=== PATIENT | female | born 1950 | race Caucasian/White ===

== ENCOUNTER → 2016-02-26 | Outpatient (CLI) | payer OTHER ==
[~2016-02-26] MED LIST: ADVIN25/60 INH; ALBINS/ INH; ALBU0.5N2 NEB; ALBU1AER9 INH; CHOL200010 PO; CRS10 PO; DOXY100C PO; DVN/160 PO; EQUATE ALLERGY PEG; FEXO1TAB PO; FLNIN/ NAE; GLC500 PO; IPRA1AER2 INH; LEVO75TA5 PO; LEVO88TA3 PO; LSX20 PO; MAGN250T8 PO; MULTTAB58 PO; OXYC-57 PO; RANI150T2 PO; SPRIN/30 INH
--- NOTE | 2016-02-26 16:11 | MAMMOGRAPHY REPORT ---
BILATERAL DIGITAL SCREENING MAMMOGRAM WITH CAD: 02/26/2016 CLINICAL HISTORY: Routine screening. Patient has no complaints. TECHNIQUE: Current study was also evaluated with a Computer Aided Detection (CAD) system. Bilatera l CC and MLO views were obtained. COMPARISON: Comparison is made to exams dated: 02/11/2015 mammogram - [facility], 12/24/2008 mammogram - [facility], and 10/23/2007 mammogram. BREAST COMPOSITION: The tissue of both breasts is almost entirely fatty. FINDINGS: No suspicious masses, calcifications, or areas of architectural distortion are noted in e ither breast. There has been no significant interval change compared to prior exams. IMPRESSION: ACR BI-RADS CATEGORY 1: NEGATIVE There is no mammographic evidence of malignancy. A 1 year screening mammogram is recommended. The p atient will receive written notification of the results. Approximately 10% of breast cancers are not detected with mammography. A negative mammographic repor t should not delay biopsy if a clinically suggestive mass is present. Janice Nguyen M.D. ah/:02/26/2016 12:40:57 Knitted Goods Shaper: Arcelia Naranjo, [facility] letter sent: Normal 1/2 BI-RADS Code: ACR BI-RADS Category 1: Negative
== END | disposition home or self-care (01) ==
LOC: C.MAMM 10:04
PROVIDERS: ATTEND Internal Medicine
DX: Z12.31 Encounter for screening mammogram for malignant neoplasm of breast (principal)

== ENCOUNTER 2016-04-21 16:24 | Emergency (ER) | payer OTHER ==
[~2016-04-21] VITALS: Ht 149.9 cm; Wt 105.9 kg
[~2016-04-21 16:24] MED LIST changes: -ADVIN25/60 INH; -ALBINS/ INH; -CHOL200010 PO; -CRS10 PO; -DOXY100C PO; -DVN/160 PO; -FEXO1TAB PO; -FLNIN/ NAE; -GLC500 PO; -IPRA1AER2 INH; -LEVO88TA3 PO; -LSX20 PO; -MAGN250T8 PO; -MULTTAB58 PO; -OXYC-57 PO; -RANI150T2 PO; -SPRIN/30 INH
[2016-04-21 16:27] VITALS: TEMP 36.8; Ht 149.9 cm; Wt 105.9 kg
[2016-04-21] MEDS ORDERED: FEXO1TAB PO (16:42)
[2016-04-21] MEDS ORDERED: IPRA1AER2 INH (16:42)
[2016-04-21] MEDS ORDERED: ALBINS/ INH (16:42)
[2016-04-21] MEDS ORDERED: OXYCODONE/ACETAMINOPHEN 5-325 TAB PO ONE (16:45)
--- NOTE | 2016-04-21 17:25 | DIAGNOSTIC IMAGING REPORT ---
LEFT SHOULDER 4 VIEWS CLINICAL HISTORY: Left shoulder pain. FINDINGS: 3 views of left shoulder are obtained. No prior studies are available for comparison at the time of dictation. The skeletal structures are osteopenic. No fracture or dislocation is seen. Mild productive change is noted at the acromioclavicular articulation. The glenohumeral joint appears preserved. The overlying soft tissues are within normal limits. Partially imaged left lung parenchyma appears clear. Atherosclerotic calcification is noted in the partially imaged thoracic aorta. IMPRESSION: No acute bony abnormality is seen in the left shoulder. Electronically signed by: Michael Jimenez M.D. 04/21/2016 5:24 PM Dictated Date/Time: 04/21/2016 5:23 PM
[2016-04-21] MEDS ORDERED: OXYC-57 PO (17:35)
--- NOTE | 2016-04-21 17:38 | EMERGENCY ROOM VISIT NOTE ---
History Report prepared by Cody: Laverne Bruno Under the Supervision of: Dr. Go Esteves D.O. First contact with patient: 16:30 Chief Complaint: SHOULDER PAIN Stated Complaint: LUMP-PAIN IN LEFT SHOULDER/ARM AND BACK PAIN History of Present Illness The patient is a 65 year old female who presents to the Emergency Room with complaints of persistent left shoulder pain which started a couple days ago. The patient currently rates her discomfort as an 8 out of 10. She states that she experiences pain when she tries to move her shoulder and sometimes it feels like her shoulder is locking up. She also reports that there is a lump on her shoulder which has also been present for a couple days. She denies any recent falls. She has a cough, but mentions that she is asthmatic. She also states she is experiencing pain in her lower back and mid back. Patient denies any fever. She took ibuprofen, but experienced no significant relief. The patient is right handed. Source of History: patient Onset: couple days ago Position: shoulder (left) Symptom Intensity: 8/10 Timing: other (persistent) Modifying Factors (Worsening): movement Associated Symptoms: + back pain, + cough, No fevers Review of Systems See HPI for pertinent positives & negatives. A total of 10 systems reviewed and were otherwise negative. Past Medical & Surgical Medical Problems: (1) COPD (chronic obstructive pulmonary disease) (2) Diabetes (3) Hyperlipidemia Nec/Nos (4) Hypothyroidism Nos (5) Pancreatitis, acute (6) Tubal of gallbladder Family History Cancer Diabetes mellitus Heart disease Hypertension Lung disease Social History Smoking Status: Never Smoker Alcohol Use: none Marital Status: Housing Status: lives with family Occupation Status: unemployed Current/Historical Medications Scheduled Cholecalciferol (Vitamin D), 2,000 INTER.UNIT PO HS Fluticasone Prop/Salmeterol (Advair Diskus 250/50 60 Dose), 1 PUFF INH BID Fluticasone Propionate (Fluticasone Propionate), 2 SPRAYS SYLVIA QAM Furosemide (Furosemide), 20 MG PO QAM Levothyroxine Sodium (Levothyroxine Sodium), 1 TAB PO QAM Magnesium Oxide (Mg Supplement (Magnesium), 1 TAB PO QPM Metformin HCl (Metformin HCl), 1,000 MG PO BIDM Multiple Vitamin (Multivitamin), 1 TAB PO QAM Ranitidine HCl (Ranitidine HCl), 150 MG PO BID Rosuvastatin Calcium (Crestor), 10 MG PO HS Tiotropium [place] (Spiriva Handihaler), 1 CAP INH QAM Valsartan (Diovan), 160 MG PO HS Scheduled PRN Albuterol Sulf (Proventil 0.083% 2.5MG/3ML), 2.5 MG INH TID PRN for SOB/Wheezing Fexofenadine Hcl (Eql Aller-Ease), 1 TAB PO DAILY PRN for ALLERGIC REACTION Ipratropium-Albuterol (Combivent Respimat), 1 PUFF INH QID PRN for SOB/Wheezing Oxycodone/Acetaminophen 5MG/325MG (Percocet 5MG/325MG), 1 TAB PO Q6H PRN for Pain Allergies Coded Allergies: Penicillins (Verified Allergy, Severe, HIVES, 02/28/15) Uncoded Allergies: TOMATOES (Allergy, Intermediate, RASH, 02/28/15) ENVIRONMENTAL (Allergy, Unknown, NASAL CONGESTION, 02/28/15) Physical Exam Vital Signs Date Time Temp Pulse Resp B/P Pulse Ox O2 Delivery O2 Flow Rate FiO2 04/21/16 16:27 36.8 101 18 145/69 94 Room Air Physical Exam CONSTITUTIONAL/VITAL SIGNS: Reviewed / noted above. GENERAL: Non-toxic in appearance. INTEGUMENTARY: Warm, dry, and [place]. HEAD: Normocephalic. EYES: without scleral icterus or trauma. ENT/OROPHARYNX: clear and moist. LYMPHADENOPATHY/NECK: Is supple without lymphadenopathy or meningismus. RESPIRATORY: Lungs clear and equal. CARDIOVASCULAR: Regular rate and rhythm. GI/ABDOMEN: Soft and nontender. No organomegaly or pulsatile mass. No rebound or guarding. Normal bowel sounds. EXTREMITIES: Warm and well perfused. BACK: No CVA tenderness. NEUROLOGICAL: Intact without focal deficits. PSYCHIATRIC: normal affect. MUSCULOSKELETAL: Normally developed with good muscle tone. Tender to palpation of musculature of left shoulder. Mild discomfort in left shoulder with range of motion. Strong distal pulses. Motor and sensation normal for left arm. Medical Decision & Procedures ER Provider Diagnostic Interpretation: X ray results and stated below per my interpretation and radiology interpretation. LEFT SHOULDER 4 VIEWS CLINICAL HISTORY: Left shoulder pain. FINDINGS: 3 views of left shoulder are obtained. No prior studies are available for comparison at the time of dictation. The skeletal structures are osteopenic. No fracture or dislocation is seen. Mild productive change is noted at the acromioclavicular articulation. The glenohumeral joint appears preserved. The overlying soft tissues are within normal limits. Partially imaged left lung parenchyma appears clear. Atherosclerotic calcification is noted in the partially imaged thoracic aorta. IMPRESSION: No acute bony abnormality is seen in the left shoulder. Electronically signed by: Michael Jimenez M.D. 04/21/2016 5:24 PM Medications Administered Medications (Trade) Dose Ordered Sig/Arcadio Route Start Time Stop Time Status Last Admin Dose Admin Oxycodone/ Acetaminophen (Percocet 5-325mg Tab) 1 tab NOW ONCE PO 04/21/16 16:45 04/21/16 16:46 DC 04/21/16 16:51 1 TAB ED Course 1634: Previous medical records were reviewed. The patient was evaluated in room B11. A complete history and physical examination was performed. 1645: Oxycodone/Acetaminophen 1 tab PO. 174: I reevaluated the patient. She is resting comfortably. I discussed the results and treatment plan with her. She verbalized complete understanding and agreement. She will be discharged home. Medical Decision Differential considered: arthritis, musculoskeletal strain, contusion, infection . This is a 65-year-old female who presents to the ED with a chief complaint of left shoulder pain. The patient states that her left shoulder began hurting the last few days. She states that she feels like it locks up on occasion. He denies injury. She has no chest pains or shortness of breath. Her pain is worsened with movement. Her exam reveals tenderness to palpation of the left shoulder musculature. She appears to have mild discomfort with passive and active motion of the left shoulder. She is neurovascularly intact distally. There are no rashes. There is no redness. There is a small lump in the left scapular area that is nontender and likely unrelated to the patient's symptoms. The patient is felt to be stable for discharge. She was treated with Percocet by mouth. She'll be discharged on Percocet. An x-ray did not show any acute abnormality. Impression Primary Impression: Left shoulder pain Scribe Attestation The scribe's documentation has been prepared under my direction and personally reviewed by me in its entirety. I confirm that the note above accurately reflects all work, treatment, procedures, and medical decision making performed by me. Departure Information Dispostion Home / Self-Care Prescriptions Oxycodone/Acetaminophen 5MG/325MG (PERCOCET 5MG/325MG) Tab 1 TAB PO Q6H Y for Pain, #12 TAB Prov: Go Esteves D.O. 04/21/16 Referrals Robert Devi M.D. (PCP) Robert Pierce MD Forms HOME CARE DOCUMENTATION FORM, IMPORTANT VISIT INFORMATION Patient Instructions My [facility] Additional Instructions Percocet as prescribed. No driving within 6 hours of use. Do not take additional Tylenol while taking Percocet. Follow-up with orthopedics for further evaluation of your shoulder pain. Dr. Pierce listed above.
[2016-04-21 18:12] VITALS: BP 127/87; PULSE 88; O2SAT 98
[2016-04-21] MEDS ORDERED: GLC500 PO (20:35)
[2016-04-21] MEDS ORDERED: SPRIN/30 INH (20:35)
[2016-04-21] MEDS ORDERED: FLNIN/ NAE (20:35)
[2016-04-21] MEDS ORDERED: CRS10 PO (20:35)
[2016-04-21] MEDS ORDERED: RANI150T2 PO (20:35)
[2016-04-21] MEDS ORDERED: LSX20 PO (20:35)
[2016-04-21] MEDS ORDERED: ADVIN25/60 INH (20:35)
[2016-04-21] MEDS ORDERED: DVN/160 PO (20:35)
[2016-04-21] MEDS ORDERED: CHOL200010 PO (20:38)
[2016-04-21] MEDS ORDERED: MULTTAB58 PO (20:38)
[2016-04-21] MEDS ORDERED: MAGN250T8 PO (22:56)
== END 2016-04-21 18:11 | disposition home or self-care (01) ==
LOC: C.EDB 16:26
DX: M25.512 Pain in left shoulder (principal); J44.9 Chronic obstructive pulmonary disease, unspecified; E11.9 Type 2 diabetes mellitus without complications; E03.9 Hypothyroidism, unspecified; E78.5 Hyperlipidemia, unspecified; Z79.84 Long term (current) use of oral hypoglycemic drugs; Z79.899 Other long term (current) drug therapy

== ENCOUNTER → 2016-07-05 | Outpatient (CLI) | payer OTHER ==
[~2016-07-05] MED LIST changes: +ADVIN25/60 INH; +ALBINS/ INH; -ALBU0.5N2 NEB; -ALBU1AER9 INH; +CHOL200010 PO; +CRS10 PO; +DOXY100C PO; +DVN/160 PO; -EQUATE ALLERGY PEG; +FEXO1TAB PO; +FLNIN/ NAE; +GLC500 PO; +IPRA1AER2 INH; +LEVO88TA3 PO; +LSX20 PO; +MAGN250T8 PO; +MULTTAB58 PO; +OXYC-57 PO; +RANI150T2 PO; +SPRIN/30 INH
[2016-07-05 12:20] LABS: BASO % 0.2 %; BASO ABS # 0.02 K/uL (0-0.2); COMPLETE YES; EOS % 2.7 %; HEMATOCRIT 39.8 % (37-47); IG% 0.1 %; LYMPH % 35.5 %; MEAN CELL VOLUME 87.1 fL (80-100); MEAN CORPUSCULAR HEMOGLOBIN 28.4 pg (25-34); MEAN CORPUSCULAR HGB CONC 32.7 g/dl (32-36); MEAN PLATELET VOLUME 9.5 fL (7.4-10.4); MONO % 6.5 %; PLATELET COUNT 331 K/uL (130-400); RED BLOOD COUNT 4.57 M/uL (4.2-5.4); WHITE BLOOD COUNT 10.14 K/uL (4.8-10.8)
[2016-07-05 12:25] LABS: URINE APPEARANCE CLEAR (CLEAR); URINE BILIRUBIN NEG (NEG); URINE COLOR YELLOW; URINE EPITHELIAL CELL AUTO >30 /lpf (0-5); URINE NITRITE NEG (NEG); URINE PH 5.5 (4.5-7.5); URINE SPECIFIC GRAVITY 1.012 (1.000-1.030); UROBILINOGEN NEG (NEG); ZZUR CULT IF INDIC CLEAN CATCH NO
[2016-07-05 12:38] LABS: MANUAL MICROSCOPIC REQUIRED? NO; REVIEW REQ? NO
[2016-07-05 12:39] LABS: ALT/SGPT 55 U/L (12-78); BLOOD UREA NITROGEN 9 mg/dl (7-18); BUN/CREATININE RATIO 10.2 (10-20); CARBON DIOXIDE 27 mmol/L (21-32); CHLORIDE 103 mmol/L (98-107); CHOLESTEROL 147 mg/dl (0-200); CREATININE 0.91 mg/dl (0.60-1.20); GLUCOSE 141 mg/dl (70-99); POTASSIUM 4.2 mmol/L (3.5-5.1); SODIUM 138 mmol/L (136-145); TRIGLYCERIDES 178 mg/dl (0-150); VERY LOW DENSITY LIPOPROT CALC 36 mg/dl
[2016-07-05 12:50] LABS: ALKALINE PHOSPHATASE 45 U/L (45-117); AST/SGOT 25 U/L (15-37); CHOLESTEROL/HDL RATIO 2.5; HDL CHOLESTEROL 59 mg/dl; LDL CHOLESTEROL CALCULATED 52 mg/dl
[2016-07-05 12:51] LABS: CALCIUM 9.8 mg/dl (8.5-10.1)
[2016-07-05 13:01] LABS: ESTIMATED AVERAGE GLUCOSE 160 mg/dl; HA1C FLAG Normal (Normal)
[2016-07-05 13:18] LABS: RATIO 29.8 mcg/mg (0-30.0)
== END | disposition home or self-care (01) ==
LOC: C.LABBFT 08:06
PROVIDERS: ATTEND Internal Medicine
DX: E11.9 Type 2 diabetes mellitus without complications (principal); E78.5 Hyperlipidemia, unspecified; E03.9 Hypothyroidism, unspecified

== ENCOUNTER 2016-11-12 12:28 | Emergency (ER) | payer OTHER ==
[~2016-11-12] VITALS: Ht 144.8 cm; Wt 102.5 kg
[~2016-11-12 12:28] MED LIST changes: -DOXY100C PO; -LEVO88TA3 PO; -OXYC-57 PO
[2016-11-12 12:44] VITALS: Ht 144.8 cm; Wt 102.5 kg
[2016-11-12] MEDS ORDERED: LEVO88TA3 PO (13:18)
--- NOTE | 2016-11-12 13:47 | EMERGENCY ROOM VISIT NOTE ---
History First contact with patient: 13:21 Chief Complaint: BACK PAIN Stated Complaint: LOWER BACK PAIN, SWELLING, SINUS INFECTION History of Present Illness The patient is a 65 year old female who presents to the Emergency Room with complaints of low back pain and a possible sinus infection. The patient states that she has had low back pain and spasms for the past 1.5 weeks. The pain initially started after she got out of bed and she assumed that she twisted the wrong way, causing the onset of pain. The patient does state that she had a fall approximately 30 years ago which causes her back to "act up" periodically. She states this back pain feels similar to how the pain has followed the past , the only difference is that the pain as lasting for a longer duration this time. She states the pain is in the right lower back and radiates into the right hip. She has a difficult time walking due to the pain. She rates the discomfort a 10/10. She has been taking ibuprofen and using BenGay without relief. She denies any urinary symptoms, bowel/bladder incontinence, or numbness/weakness of the lower extremities. The patient additionally reports that she believes she has a sinus infection. She reports that she has a history of frequent sinusitis in this feels similar to previous episodes. She reports that she has a cough which is productive of green mucus. She reports pressure in her sinuses. Her daughter feels that she has some swelling over the frontal sinuses. The patient denies any shortness of breath, fevers, neck pain/stiffness or headache. She reports that she saw her fire watcher this morning for a routine checkup and they encouraged her to make an appointment with her primary care provider. She called and made an appointment, but her PCP is not able to see her for 4 days. Review of Systems A complete 10 point review of systems was reviewed with the patient with pertinent positives and negatives as per history of present illness. All else were negative. Past Medical/Surgical History Medical Problems: (1) COPD (chronic obstructive pulmonary disease) (2) Diabetes (3) Hyperlipidemia Nec/Nos (4) Hypothyroidism Nos (5) Pancreatitis, acute (6) Tubal of gallbladder Family History Cancer Diabetes mellitus Heart disease Hypertension Lung disease Social History Smoking Status: Never Smoker Alcohol Use: none Marital Status: Housing Status: lives with family Occupation Status: unemployed Current/Historical Medications Scheduled Cholecalciferol (Vitamin D), 2,000 INTER.UNIT PO HS Doxycycline Hyclate (Vibramycin), 100 MG PO BID Fluticasone Prop/Salmeterol (Advair Diskus 250/50 60 Dose), 1 PUFF INH BID Fluticasone Propionate (Fluticasone Propionate), 2 SPRAYS SYLVIA QAM Furosemide (Furosemide), 20 MG PO QAM Levothyroxine Sodium (Levothyroxine Sodium), 88 MCG PO QAM Magnesium Oxide (Mg Supplement (Magnesium), 1 TAB PO QPM Metformin HCl (Metformin HCl), 1,000 MG PO BIDM Multiple Vitamin (Multivitamin), 1 TAB PO QAM Ranitidine HCl (Ranitidine HCl), 150 MG PO BID Rosuvastatin Calcium (Crestor), 10 MG PO HS Valsartan (Diovan), 160 MG PO HS Scheduled PRN Albuterol Sulf (Proventil 0.083% 2.5MG/3ML), 2.5 MG INH TID PRN for SOB/Wheezing Fexofenadine Hcl (Eql Aller-Ease), 1 TAB PO DAILY PRN for ALLERGIC REACTION Ipratropium-Albuterol (Combivent Respimat), 1 PUFF INH QID PRN for SOB/Wheezing Oxycodone/Acetaminophen 5MG/325MG (Percocet 5MG/325MG), 1 TAB PO Q4H PRN for Pain Physical Exam Vital Signs Date Time Temp Pulse Resp B/P (MAP) Pulse Ox O2 Delivery O2 Flow Rate FiO2 11/12/16 15:12 36.8 91 20 127/71 96 11/12/16 15:11 91 20 127/71 96 Room Air 11/12/16 12:44 36.8 96 20 136/71 96 Room Air Physical Exam VITALS: Vitals are noted on the nurse's note and reviewed by myself. Vital signs stable. GENERAL: This is a 65-year-old female, in no acute distress, nondiaphoretic, well-developed well-nourished. SKIN: The skin was without rashes. EARS: External auditory canals clear, tympanic membranes pearly lion without erythema or effusion bilaterally. EYES: Pupils equal round and reactive to light and accommodation. Conjunctivae without injection, sclerae without icterus. Extraocular movements intact. NOSE: Patent, turbinates without inflammation or discharge. MOUTH: Mucous membranes moist. Tonsils are not enlarged. Pharynx without erythema or exudate. NECK: Supple without nuchal rigidity. No lymphadenopathy. No meningismus. HEART: Regular rate and rhythm without murmurs gallops or rubs. LUNGS: Clear to auscultation bilaterally without wheezes, rales or rhonchi. MUSCULOSKELETAL: There is vague tenderness to palpation of the lumbar spine and right lumbar region. There are no palpable muscle spasms, however examination is limited secondary to patient's body habitus. Full range of motion and strength 5/5 in bilateral lower extremity. Normal sensation in lower extremities. NEURO: Patient was alert and oriented to person place and time. Medical Decision & Procedures ER Provider Diagnostic Interpretation: CHEST 2 VIEWS ROUTINE FINDINGS: Atherosclerosis of aortic arch. Cardiac silhouette normal in size. Lungs and pleural spaces clear. Osseous structures normal. Upper abdomen normal. IMPRESSION: 1. No acute cardiopulmonary disease. L-SPINE MIN 4 VIEWS ROUTINE FINDINGS: Normal lumbar lordosis. Vertebral body heights and alignment maintained. Mild intervertebral disc space loss at L4-5. Mild facet arthropathy may be present in the lower lumbar spine. No convincing evidence of osseous neural foraminal narrowing. No radiographic evidence of fracture or subluxation. Nonobstructive bowel gas pattern. Atherosclerosis. IMPRESSION: Degenerative change focally at L4-5. No radiographic evidence of acute osseous injury. Medical Decision Differential diagnosis includes cauda equina syndrome, cord compression, disc herniation, muscle spasm, lumbar strain, epidural abscess, malignancy, transverse myelitis, urinary tract infection, colitis, diverticulitis, kidney stone, sinusitis, pneumonia, bronchitis, among others. The patient is a 65-year-old female who presents today complaining of low back pain and symptoms of sinusitis. X-rays of the lumbar spine were performed and showed degenerative changes without any acute findings. Chest x-ray was performed due to patient's complaint of a cough and showed no evidence of pneumonia. Patient does report a significant history of sinusitis and will be placed on doxycycline as she feels the symptoms are similar. She will be given a short course of pain medication for her back pain but was advised to follow- up with her primary care provider for further evaluation of this. Based on the patient's presentation and work up, I feel the patient is stable for outpatient treatment. The patient was educated to return to the emergency department for any worsening of their current condition or new/concerning symptoms. She will follow up with her PCP. [facility] Monitoring Program Search Results: patient reviewed within database, no issues identified Medication Reconcilliation Current Medication List: was personally reviewed by me Blood Pressure Screening Patient's blood pressure: Normal blood pressure Impression Primary Impression: Low back pain Additional Impression: Maxillary sinusitis Departure Information Dispostion Home / Self-Care Condition GOOD Prescriptions Oxycodone/Acetaminophen 5MG/325MG (PERCOCET 5MG/325MG) Tab 1 TAB PO Q4H Y for Pain, #12 TAB For Initial Treatment Prov: Dianne Park PA-C 11/12/16 Doxycycline Hyclate (VIBRAMYCIN) 100 Mg Cap 100 MG PO BID for 10 Days, #20 CAP Prov: Dianne Park PA-C 11/12/16 Referrals Robert Devi M.D. (PCP) Patient Instructions My [facility] Additional Instructions You were prescribed doxycycline to be taken twice daily as prescribed. This is an antibiotic. All antibiotics have the potential to cause diarrhea. Stop this medication and contact a medical provider if you were to develop any significant adverse side effects including: wheezing, shortness of breath, passing out, vomiting, or a diffuse rash. Always take antibiotics as directed and COMPLETE the ENTIRE course regardless of the improvement of your symptoms. For pain control, you can use the following [id number] medicines (if >12 yo): - Regular strength (325mg/tab) Tylenol (acetaminophen) 2 tabs every 4-6 hours as needed. Do not exceed 12 tablets in a 24 hour period. Avoid taking more than 4 grams (4000 mg) of Tylenol per day. This includes any other sources of acetaminophen you may take on a regular basis. - Regular strength (200 mg/tab) Advil (ibuprofen) 1-2 tabs every 4-6 hours as needed. Do not exceed a dose of 3200 mg per day. You have been prescribed Percocet to be used for pain control. Take 1-2 tablets every 4-6 hours as needed for pain. This is a narcotic medication. You cannot drive or consume alcohol while on this medicine. This medicine should only be used for pain that cannot be controlled with [id number] pain medicines. Follow-up with your primary care provider as scheduled on Tuesday. Return to the emergency department with any leg numbness/weakness, bowel/ bladder incontinence, neck pain/tightness, high fevers or other new/concerning symptoms. Problem Qualifiers
--- NOTE | 2016-11-12 14:17 | DIAGNOSTIC IMAGING REPORT ---
CHEST 2 VIEWS ROUTINE CLINICAL HISTORY: 65 years-old Female presenting with productive cough. TECHNIQUE: PA and lateral views of the chest were obtained. COMPARISON: 05/12/2011. FINDINGS: Atherosclerosis of aortic arch. Cardiac silhouette normal in size. Lungs and pleural spaces clear. Osseous structures normal. Upper abdomen normal. IMPRESSION: 1. No acute cardiopulmonary disease. Electronically signed by: Gonzalez Rivas M.D. 11/12/2016 2:16 PM Dictated Date/Time: 11/12/2016 2:15 PM
--- NOTE | 2016-11-12 14:19 | DIAGNOSTIC IMAGING REPORT ---
L-SPINE MIN 4 VIEWS ROUTINE CLINICAL HISTORY: 65 years-old Female presenting with low back pain, spasms. TECHNIQUE: Frontal, bilateral oblique, lateral, and coned in lateral views the lumbar spine were obtained. COMPARISON: CT from 2014. FINDINGS: Normal lumbar lordosis. Vertebral body heights and alignment maintained. Mild intervertebral disc space loss at L4-5. Mild facet arthropathy may be present in the lower lumbar spine. No convincing evidence of osseous neural foraminal narrowing. No radiographic evidence of fracture or subluxation. Nonobstructive bowel gas pattern. Atherosclerosis. IMPRESSION: Degenerative change focally at L4-5. No radiographic evidence of acute osseous injury. Electronically signed by: Gonzalez Rivas M.D. 11/12/2016 2:18 PM Dictated Date/Time: 11/12/2016 2:16 PM
[2016-11-12] MEDS ORDERED: OXYC-57 PO (14:45)
[2016-11-12] MEDS ORDERED: DOXY100C PO (14:45)
[2016-11-12 15:12] VITALS: BP 127/71; PULSE 91; TEMP 36.8; O2SAT 96
== END 2016-11-12 15:13 | disposition home or self-care (01) ==
LOC: C.EDB 12:30 → C.EDD 15:13
DX: M54.2 Cervicalgia (principal); J32.0 Chronic maxillary sinusitis; E78.5 Hyperlipidemia, unspecified; E03.9 Hypothyroidism, unspecified; J44.9 Chronic obstructive pulmonary disease, unspecified; E11.9 Type 2 diabetes mellitus without complications; K86.1 Other chronic pancreatitis; Z79.899 Other long term (current) drug therapy; Z80.9 Family history of malignant neoplasm, unspecified; Z83.3 Family history of diabetes mellitus; Z82.49 Family history of ischemic heart disease and other diseases of the circulatory system

== ENCOUNTER → 2017-01-04 | Outpatient (CLI) | payer OTHER ==
[~2017-01-04] MED LIST changes: -LEVO75TA5 PO; +LEVO88TA3 PO; +OXYC-57 PO; -SPRIN/30 INH
[2017-01-04 16:55] LABS: ALT/SGPT 36 U/L (12-78); BLOOD UREA NITROGEN 15 mg/dl (7-18); BUN/CREATININE RATIO 17.8 (10-20); CALCIUM 10.1 mg/dl (8.5-10.1); CARBON DIOXIDE 29 mmol/L (21-32); CHLORIDE 102 mmol/L (98-107); CREATININE 0.84 mg/dl (0.60-1.20); GLUCOSE 126 mg/dl (70-99); POTASSIUM 4.4 mmol/L (3.5-5.1); SODIUM 137 mmol/L (136-145)
[2017-01-04 17:06] LABS: ALKALINE PHOSPHATASE 54 U/L (45-117); AST/SGOT 24 U/L (15-37)
[2017-01-05 08:03] LABS: ESTIMATED AVERAGE GLUCOSE 171 mg/dl; HA1C FLAG Normal (Normal)
== END | disposition home or self-care (01) ==
LOC: C.LABBFT 14:46
PROVIDERS: ATTEND Physician Assistant Medical
DX: E11.9 Type 2 diabetes mellitus without complications (principal); E03.9 Hypothyroidism, unspecified

== ENCOUNTER 2020-03-20 20:16 | Observation (INO) ==
[2020-03-20] MEDS ORDERED: DEXAMETHASONE SOD INJ 4 MG/ML VIAL IV STA (20:39)
[2020-03-20] MEDS ORDERED: MAGNESIUM SULFATE / D5W 1 GM/100 ML BAG IV STA (20:41)
[2020-03-20 21:12] LABS: Basophils # (auto) 0.03 K/uL (0-0.2); Basophils % (auto) 0.3 %; Eosinophils # (auto) 0.25 K/uL (0-0.5); Eosinophils % (auto) 2.2 %; Hematocrit (blood only) 38.9 % (37-47); Immature Granulocytes # (auto) 0.02 K/uL (0.00-0.02); Immature Granulocytes % (auto) 0.2 %; Lymphocytes % (auto) 30.1 %; Mean Corpuscular Hgb Conc 33.4 g/dL (32-36); Mean Corpuscular Volume 86.8 fL (80-100); Mean Platelet Volume 9.5 fL (7.4-10.4); Monocytes # (auto) 0.54 K/uL (0.11-0.59); Monocytes % (auto) 4.8 %; Neutrophils # (auto) 7.04 K/uL (1.4-6.5); Neutrophils % (auto) 62.4 %; Platelet Count 314 K/uL (130-400); RDW Coefficient of Variation 14.5 % (11.5-14.5); RDW Standard Deviation 46.2 fL (36.4-46.3); Red Blood Count 4.48 M/uL (4.2-5.4); White Blood Count 11.28 K/uL (4.8-10.8)
[2020-03-20 21:31] LABS: Alanine Aminotransferase 55 U/L (12-78); Albumin Level 3.8 gm/dl (3.4-5.0); Aspartate Aminotransferase 28 U/L (15-37); BUN Creatinine Ratio 17.7 (10-20); Blood Urea Nitrogen 19 mg/dl (7-18); Calcium 9.6 mg/dl (8.5-10.1); Carbon Dioxide 24 mmol/L (21-32); Chloride 107 mmol/L (98-107); Creatinine Clr Calc Pharmacy 56.6 ml/min; Est GFR (African American) 60.4; Est GFR (Non-African American) 52.1; Glucose 113 mg/dl (70-99); Lipase 126 U/L (73-393); Potassium 4.3 mmol/L (3.5-5.1); Sodium 140 mmol/L (136-145)
[2020-03-20 21:36] LABS: Alkaline Phosphatase 54 U/L (45-117); Bilirubin,Total 0.3 mg/dl (0.2-1); Creatine Kinase 290 U/L (26-192); Creatine Kinase MB 3.6 ng/ml (0.5-3.6); Globulin 3.7 gm/dl (2.5-4.0); NT Pro B Type Natriuretic Pept 28 pg/ml (0-900); Total Protein 7.5 gm/dl (6.4-8.2); Troponin I < 0.015 ng/ml (0-0.045)
[2020-03-20 22:11] LABS: Influenza A virus by PCR Negative (Neg); Influenza B virus by PCR Negative (Neg); RSV by PCR Negative (Neg); SARS CoV2 RNA(COVID-19) InHosp NEGATIVE (Negative)
[2020-03-20] MEDS ORDERED: ALBUT/IPRATROP 3MG/0.5MG NEB 3 ML VIAL NEB ONE (22:31)
--- NOTE | 2020-03-21 00:17 | Emergency Department Note ---
History of Present Illness General Chief complaint: Shortness of Breath/Dyspnea Stated complaint: shortness of breath Time Seen by Provider: 03/20/20 20:18 Source: patient, EMS, RN notes reviewed and old records reviewed Mode of arrival: EMS Limitations: no limitations History of Present Illness Provider complaint: Shortness of breath Onset (ago): hour(s) 4 Severity: mild Current Pain Intensity: 0 Relieved By: + immobilization and + rest Exacerbated By: + movement Associated symptoms: + shortness of breath; no chest pain, no diaphoresis, no fever/chills, no loss of appetite, no malaise, no nausea/vomiting and no w eakness Treatments prior to arrival: other (albuterol) This is a 69-year-old female who presents emergency department complaining of shortness of breath that started approximately several hours ago. The patient has a history of COPD. She reports sinus congestion as well as a runny nose this evening. She did an albuterol breathing treatment prior to arrival of the EMS. The patient reports movement makes the breathing worse however immobilization and rest makes it better. Home Medications Medication Instructions Recorded Confirmed Type fexofenadine 180 mg tablet 180 mg PO DAILY PRN 09/28/18 03/20/20 History magnesium oxide 250 mg PO QPM tab 09/28/18 03/20/20 History multivitamin 1 tab PO DAILY 09/28/18 03/20/20 History cholecalciferol (vitamin D3) 50 4,000 units PO HS cap 10/05/18 03/20/20 History mcg (2,000 unit) capsule losartan 100 mg tablet 100 mg PO DAILY #90 tab 04/12/19 03/20/20 Rx ipratropium 20 mcg-albuterol 100 1 puffs INH QID #4 gm 04/20/19 03/20/20 Rx mcg/actuation mist for inhalation glimepiride 1 mg tablet 1 mg PO DAILY #90 tab 05/09/19 03/20/20 Rx metformin 500 mg tablet 1,000 mg PO BID #360 tab 05/28/19 03/20/20 Rx blood sugar diagnostic #300 ea 07/23/19 03/20/20 Rx fluticasone 250 mcg-salmeterol 50 1 puffs INHALATION BID #180 ea 09/20/19 03/20/20 Rx mcg/dose blistr powdr for inhalation pantoprazole 20 mg tablet,delayed 20 mg PO DAILY #30 tab 10/30/19 03/20/20 Rx release levothyroxine 88 mcg tablet 88 mcg PO DAILY #90 tab 11/12/19 03/20/20 Rx rosuvastatin 10 mg tablet 10 mg PO HS #90 tab 11/12/19 03/20/20 Rx fluticasone propionate 2 spray INTRANASAL DAILY 03/20/20 03/20/20 History Allergies Allergy/AdvReac Type Severity Reaction Status Date / Time Penicillins Allergy Severe HIVES Verified 03/20/20 22:46 TOMATOES Allergy Intermediate RASH Uncoded 03/20/20 22:46 ENVIRONMENTAL Allergy Unknown NASAL Uncoded 03/20/20 22:46 CONGESTION Past Med/Surg History Medical History COPD (chronic obstructive pulmonary disease) Diabetes Hyperlipidemia Hypertension Hypothyroidism Surgical History History of colonoscopy 2008, no more c-scopes due to abnormal GI anatomy-barium enemas History of surgical removal of lesion removal of lipoma of right flank area History of tubal ligation Hx of cholecystectomy Family History Mother Myocardial infarction Brother Myocardial infarction Father COPD (chronic obstructive pulmonary disease) Diabetes Denies family history of Ovarian cancer Prostate cancer Breast cancer Lung cancer Colorectal cancer Social History Smoking Status: Never smoker Age Started Using Tobacco: 14; Age Quit Using Tobacco: 56; packs per day: 1.5; Number of Years Since Quit: 13; Second Hand Exposure: Yes; Hx Alcohol Use: No (has not had any alcohol since 2013) Hx Substance Use: Yes (CBD Oil for back pain) Preferred Language: Angolan marital status: Current Living Situation: Spouse 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al status: retired 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, 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 How many Children do You have: 4 Feels Safe at Home: Yes Dental Care, Regularly: No Physical Activity Frequency: 1-2 Times per Week Seatbelt Use: always Sunscreen Use: No Review of Systems A total of 10 systems reviewed and were otherwise negative Physical Exam Vital Signs Vital Signs - 24 hr 03/20/20 20:05 03/20/20 20:30 03/20/20 20:39 Temperature 37.3 C Temperature Source Oral Pulse Rate 105 H 106 H Pulse Rate [Right Finger] Pulse Rate from SpO2 Sensor 106 H Respiratory Rate 26 H 20 Respiratory Effort / Characteristics Labored Respiratory Depth Shallow Respiratory Pattern Rapid/Shallow Tachypnea Blood Pressure 151/96 H 151/96 H Blood Pressure Mean 114 114 Pulse Oximetry 92 93 96 Oxygen Delivery Method Room Air Nasal Cannula Oxygen Flow Rate 3 Sepsis Recent Fever Within 48 Hours No Sepsis New/Unexplained Change in Mental Status No Sepsis Action Taken by Nursing No Action Required 03/20/20 22:08 03/20/20 22:30 03/20/20 22:49 Temperature Temperature Source Pulse Rate 96 H 97 H Pulse Rate [Right Finger] 96 H Pulse Rate from SpO2 Sensor 98 H 96 H Respiratory Rate 15 19 20 Respiratory Effort / Characteristics Non-Labored Spontaneous Respiratory Depth Respiratory Pattern Blood Pressure 143/63 H 129/60 Blood Pressure Mean 89 83 Pulse Oximetry 96 97 96 Oxygen Delivery Method Nasal Cannula Nasal Cannula Nasal Cannula Oxygen Flow Rate 3 3 3 Sepsis Recent Fever Within 48 Hours Sepsis New/Unexplained Change in Mental Status Sepsis Action Taken by Nursing 03/20/20 23:47 Temperature Temperature Source Pulse Rate Pulse Rate [Right Finger] Pulse Rate from SpO2 Sensor Respiratory Rate Respiratory Effort / Characteristics Respiratory Depth Respiratory Pattern Blood Pressure Blood Pressure Mean Pulse Oximetry 87 L Oxygen Delivery Method Room Air Oxygen Flow Rate Sepsis Recent Fever Within 48 Hours Sepsis New/Unexplained Change in Mental Status Sepsis Action Taken by Nursing VITAL SIGNS - Vital signs and nursing notes were reviewed. GENERAL - 69-year-old female appearing stated age who is in no acute distress. Communicates well with provider and answers questions appropriately. SKIN - Without rashes. HEAD - NC/AT. EYES - PERRL with EOMI bilaterally. Sclera anicteric. Palpebral conjunctiva pink and moist with no injection noted. EARS - No deformities of external structures noted on gross examination bilaterally. No pain elicited with palpation of the tragus bilaterally. External auditory canals without discharge or otorrhea. Tympanic membranes pearly lion without retraction or bulging. No fluid or purulent material visualized behind the TM. Handle of malleus, umbo, cone of light, pars tensa/flaccid all easily visualized. NOSE - Midline and without cyanosis. No epistaxis or purulent drainage noted. Septum midline without deviation or septal hematoma noted. MOUTH/OROPHARYNX - Without perioral cyanosis. Buccal mucosa pink and moist and without leukoplakia. Tongue midline with equal elevation of palate bilaterally. No tonsillar hypertrophy, erythema, or exudates noted. dentition noted. NECK - Neck with FROM. Supple to palpation. lymphadenopathy noted. No nuchal rigidity. LUNGS - Wheezes present b/l CARDIAC - RRR with S1/S2. No murmur, rubs, or gallops appreciated. ABDOMEN - Abdominal contour without pulsations or visible masses. BS normoactive all four quadrants. No tenderness, palpable masses, hepatosplenomegaly, or ascites noted. EXTREMITIES - No clubbing or peripheral cyanosis. No pretibial edema present. +3/5 radial, posterior tibial, and dorsalis pedis pulses palpated throughout. +5/5 strength noted in UE/LE bilaterally. NEUROLOGIC - Cranial nerves II through XII grossly intact. Sensory intact to light touch throughout. Patellar reflexes +2/4. PSYCH - A&Ox3 and cooperates fully with examiner. Pt is very pleasant and interacts well with examiner. Course Administered Medications Discontinued Medications Albuterol (Albut/Ipratrop 3mg/0.5mg Neb 3 Ml Vial) 12 ml NEB ONE ONE Stop: 03/20/20 22:32 Last Admin: 03/20/20 22:48 Dose: 12 ml Documented by: [id number] Dexamethasone (Dexamethasone Sod Inj 4 Mg/Ml Vial) 6 mg IV NOW STA Stop: 03/20/20 20:40 Last Admin: 03/20/20 21:10 Dose: 6 mg Documented by: [id number] Magnesium Sulfate/Dextrose (Magnesium Sulfate / D5w) 1 gm in 100 mls @ 100 mls/hr IV NOW STA Stop: 03/20/20 21:40 Last Infusion: 03/20/20 22:15 Dose: 0 mls/hr Documented by: [id number] Admin: 03/20/20 21:11 Dose: 100 mls/hr Documented by: [id number] Medical Decision Making Differential Diagnosis Reactive airway disease, pneumonia, pneumothorax, COPD, CHF, infections, cardiac ischemia, pulmonary embolism, musculoskeletal, gastrointestinal, as well as other pathologies. Medical Records Attestation: I reviewed the patient's medical records. Home Medications Current Medication List: was personally reviewed by me Laboratory Data Attestation: I reviewed the patient's lab results. Result diagrams: 03/20/20 Unknown 03/20/20 Unknown Lab Results 03/20/20 03/20/20 03/20/20 Range/Units Unknown Unknown Unknown WBC 11.28 H (4.8-10.8) K/uL RBC 4.48 (4.2-5.4) M/uL Hgb 13.0 (12.0-16.0) g/dL Hct 38.9 (37-47) % MCV 86.8 (80-100) fL MCH 29.0 (25-34) pg MCHC 33.4 (32-36) g/dL RDW Std Deviation 46.2 (36.4-46.3) fL RDW Coeff of [place] 14.5 (11.5-14.5) % Plt Count 314 (130-400) K/uL MPV 9.5 (7.4-10.4) fL Immature Gran % (Auto) 0.2 % Neut % (Auto) 62.4 % Lymph % (Auto) 30.1 % [place] % (Auto) 4.8 % Eos % (Auto) 2.2 % Baso % (Auto) 0.3 % Neut # (Auto) 7.04 H (1.4-6.5) K/uL Lymph # (Auto) 3.40 (1.2-3.4) K/uL [place] # (Auto) 0.54 (0.11-0.59) K/uL Eos # (Auto) 0.25 (0-0.5) K/uL Baso # (Auto) 0.03 (0-0.2) K/uL Immature Gran # (Auto) 0.02 (0.00-0.02) K/uL Sodium 140 (136-145) mmol/L Potassium 4.3 (3.5-5.1) mmol/L Chloride 107 (98-107) mmol/L Carbon Dioxide 24 (21-32) mmol/L Anion Gap 10.0 (3-11) BUN 19 H (7-18) mg/dl Creatinine 1.09 (0.6-1.2) mg/dl Est Cr Clr Drug Dosing 56.6 ml/min Est GFR ( Amer) 60.4 Est GFR (Non-Af Amer) 52.1 BUN/Creatinine Ratio 17.7 (10-20) Glucose 113 H (70-99) mg/dl Calcium 9.6 (8.5-10.1) mg/dl Total Bilirubin 0.3 (0.2-1) mg/dl AST 28 (15-37) U/L ALT 55 (12-78) U/L Alkaline Phosphatase 54 (45-117) U/L Total Creatine Kinase 290 H (26-192) U/L CK-MB (CK-2) 3.6 (0.5-3.6) ng/ml CK/CKMB % Calc 1.2 (0-3.0) Troponin I < 0.015 (0-0.045) ng/ml NT-Pro-B Natriuret Pep 28 (0-900) pg/ml Total Protein 7.5 (6.4-8.2) gm/dl Albumin 3.8 (3.4-5.0) gm/dl Globulin 3.7 (2.5-4.0) gm/dl Albumin/Globulin Ratio 1.0 (0.9-2) Lipase 126 (73-393) U/L Specimen Hemolysis COVID-19 Eval Order CovFluRsv at [facility] SARS-CoV-2 (PCR) (Negative) Influenza Type A (PCR) (Neg) Influenza Type B (PCR) (Neg) RSV (RT-PCR) (Neg) 03/20/20 Range/Units Unknown WBC (4.8-10.8) K/uL RBC (4.2-5.4) M/uL Hgb (12.0-16.0) g/dL Hct (37-47) % MCV (80-100) fL MCH (25-34) pg MCHC (32-36) g/dL RDW Std Deviation (36.4-46.3) fL RDW Coeff of [place] (11.5-14.5) % Plt Count (130-400) K/uL MPV (7.4-10.4) fL Immature Gran % (Auto) % Neut % (Auto) % Lymph % (Auto) % [place] % (Auto) % Eos % (Auto) % Baso % (Auto) % Neut # (Auto) (1.4-6.5) K/uL Lymph # (Auto) (1.2-3.4) K/uL [place] # (Auto) (0.11-0.59) K/uL Eos # (Auto) (0-0.5) K/uL Baso # (Auto) (0-0.2) K/uL Immature Gran # (Auto) (0.00-0.02) K/uL Sodium (136-145) mmol/L Potassium (3.5-5.1) mmol/L Chloride (98-107) mmol/L Carbon Dioxide (21-32) mmol/L Anion Gap (3-11) BUN (7-18) mg/dl Creatinine (0.6-1.2) mg/dl Est Cr Clr Drug Dosing ml/min Est GFR ( Amer) Est GFR (Non-Af Amer) BUN/Creatinine Ratio (10-20) Glucose (70-99) mg/dl Calcium (8.5-10.1) mg/dl Total Bilirubin (0.2-1) mg/dl AST (15-37) U/L ALT (12-78) U/L Alkaline Phosphatase (45-117) U/L Total Creatine Kinase (26-192) U/L CK-MB (CK-2) (0.5-3.6) ng/ml CK/CKMB % Calc (0-3.0) Troponin I (0-0.045) ng/ml NT-Pro-B Natriuret Pep (0-900) pg/ml Total Protein (6.4-8.2) gm/dl Albumin (3.4-5.0) gm/dl Globulin (2.5-4.0) gm/dl Albumin/Globulin Ratio (0.9-2) Lipase (73-393) U/L Specimen Hemolysis COVID-19 Eval Order SARS-CoV-2 (PCR) NEGATIVE (Negative) Influenza Type A (PCR) Negative (Neg) Influenza Type B (PCR) Negative (Neg) RSV (RT-PCR) Negative (Neg) Imaging Data Attestation: I personally reviewed and interpreted this imaging study as follows: My Impression: 1 view of the chest was interpreted by me shows no evidence of pneumonia congestion or pneumothorax. ECG Data Attestation: I personally reviewed and interpreted this ECG as follows: Indication: + SOB/dyspnea Rate (beats per minute): 106 Rhythm: + sinus tachycardia ECG Intervals/blocks: + Normal QT-c (438) ECG [place]: + Normal ECG ST segments: no ST depression and no ST elevation Comparison ECG Date: from (12/28/2014) Change: no significant change MDM Narrative Patient was seen and evaluated as above in room C5. Review was performed of nursing notes and vital signs. I did review pertinent previous visits and patient history. After obtaining a thorough history and physical examination the above work up was performed. This is a 69-year-old female who is not normally on oxygen at home complaining of shortness of breath. Here in the emergency department she is satting 87% on room air. She was started placed on 3 L of oxygen. She was given 125 mg Solu- Medrol as well as 1 g of magnesium. X-ray does not show any evidence of pneumonia congestion or pneumothorax. Because the patient was ambulated by nursing staff and is continuing to need oxygen I did discuss the case with the hospitalist service. She is negative for fournier. An order was placed for continuous cardiac monitoring. The monitor shows a rate of 96 with Normal Sinus rhythm. The patient was evaluated during a period of high volume and high acuity while the hospital was at overcapacity during the global COVID-19 pandemic, and that diagnosis was suspected/considered upon their initial presentation. Their evaluation, treatment and testing was consistent with current guidelines for patients who present with complaints or symptoms that may be related to COVID- 19. Impression & Plan Hypoxia, COPD (chronic obstructive pulmonary disease) Discharge Plan Visit Data Chief Complaint: Shortness of Breath/Dyspnea Stated Complaint: shortness of breath ED Provider: Go Claudio Discharge Problem: Hypoxia, COPD (chronic obstructive pulmonary disease) Forms Stand Alone Forms: My [facility] [place] [facility] Prescriptions Prescriptions: No Action cholecalciferol (vitamin D3) 2,000 unit capsule 4,000 units PO HS RF: 0 losartan 100 mg tablet 100 mg PO DAILY Qty: 90 RF: 3 Combivent Respimat 20-100 mcg/actuation mist 1 puffs INH QID Qty: 4 RF: 5 glimepiride 1 mg tablet 1 mg PO DAILY Qty: 90 RF: 3 metformin 500 mg tablet 1,000 mg PO BID Qty: 360 RF: 3 (DME) blood sugar diagnostic Strip See Rx Instructions .ROUTE .MEDSUPPLY Qty: 300 RF: 3 fluticasone propion-salmeterol 250-50 mcg/dose blister with device 1 puffs inhalation BID Qty: 180 RF: 3 levothyroxine 88 mcg tablet 88 mcg PO DAILY Qty: 90 RF: 1 rosuvastatin 10 mg tablet 10 mg PO HS Qty: 90 RF: 1 multivitamin [Daily Multi-Vitamin] tablet 1 tab PO DAILY RF: 0 magnesium oxide 250 mg magnesium tablet 250 mg PO QPM RF: 0 fexofenadine [Gwendolyn Allergy] 180 mg tablet 180 mg PO DAILY PRN (Reason: allergies) RF: 0 pantoprazole 20 mg tablet,delayed release (DR/EC) 20 mg PO DAILY Qty: 30 RF: 5 fluticasone propionate 50 mcg/actuation spray,suspension 2 spray intranasal DAILY RF: 0 Discharge Problem: COPD (chronic obstructive pulmonary disease) Qualifiers: COPD type: unspecified COPD Qualified Code(s): J44.9 - Chronic obstructive pulmonary disease, unspecified
--- NOTE | 2020-03-21 00:56 | History & Physical Report ---
Date of Service March 21, 2020 Assessment & Plan (1) Acute respiratory failure with hypoxia: 69-year-old female past medical history significant for DM 2, hypertension, hyperlipidemia, hypothyroidism, KEV on CPAP, COPD admitted for acute hypoxic respiratory failure suspected to be secondary to COPD exacerbation. Acute hypoxic respiratory failure: - With SpO2 86% on room air on arrival, requiring 3LNC. Now back on room air. - Suspect multifactorial with OHS, Hx KEV without CPAP use during sleep, COPD exacerbation. - Will start azithromycin. - Defer IV steroids as per patient's wishes. Long discussion regarding appropriate therapy for COPD exacerbation, and despite this patient refuses steroids. - Pulmicort Respules, Duonebs scheduled. - Continue home inhalers for COPD. - May require ambulatory oxygen at home. Two step prior to discharge. EKV: - Continue CPAP qHS and while asleep. DM2: - d/c oral home medications, start basal/bolus insulin while admitted. - DM2 diet. HTN: - Continue home losartan. HLD: - Continue home rosuvastatin. Hypothyroidism: - Continue home levothyroxine. GERD: - Continue home pantoprazole. Code Status: Conditional Code. Patient does not want defibrillation or chest compressions if her heart stops. She only desires intubation in the event of a primary lung problem without heart involvement such as respiratory failure due to lung infection. FEN/GI: Heart Healthy DM2 diet DVT ppx: Heparin 5000u q8h Dispo: Med/Surg for azithromycin, neb treatments (2) COPD exacerbation: (3) KEV (obstructive sleep apnea): (4) Diabetes: (5) Hypothyroidism: (6) Hypertension: (7) Hyperlipidemia: History of Present Illness Chief Complaint: Shortness of breath Primary Care Provider: Robert Devi MD 69-year-old female past medical history significant for DM 2, hypertension, hyperlipidemia, hypothyroidism, KEV on CPAP, COPD presented to ED for shortness of breath and increased dyspnea on exertion. Reports that this morning when she went with her to go grocery shopping she had some shortness of breath with walking, would improve with rest. On arrival home due to sleeping poorly the night before she took a nap, and when she woke up she felt short of breath still, which got worse with any movement including trying to get out of bed. She did not have any associated chest pain, dizziness, headache, abdominal pain, fevers or chills. She tried one of her home nebulizers without any improvement, which prompted her visit to the ER. Did have a sinus infection 1 week ago, did not take any antibiotics for this. Of note, patient did not wear her CPAP during her nap. Does not wear supplemental oxygen at baseline. In the ER patient was noted to be hypoxic to 87% on room air, with improvement to normal levels on 3L supplemental O2. Mild leukocytosis to 11. COVID 19 testing negative. On my interview patient denies active SOB. Refuses further IV steroids because they "make her gain weight". Allergies Allergy/AdvReac Type Severity Reaction Status Date / Time Penicillins Allergy Severe HIVES Verified 03/20/20 22:46 tomato Allergy Intermediate Rash Verified 03/21/20 08:52 Home Medications Medication Instructions Recorded Confirmed Type fexofenadine 180 mg tablet 180 mg PO DAILY PRN 09/28/18 03/20/20 History magnesium oxide 250 mg PO QPM tab 09/28/18 03/20/20 History multivitamin 1 tab PO DAILY 09/28/18 03/20/20 History cholecalciferol (vitamin D3) 50 4,000 units PO HS cap 10/05/18 03/20/20 History mcg (2,000 unit) capsule losartan 100 mg tablet 100 mg PO DAILY #90 tab 04/12/19 03/20/20 Rx ipratropium 20 mcg-albuterol 100 1 puffs INH QID #4 gm 04/20/19 03/20/20 Rx mcg/actuation mist for inhalation glimepiride 1 mg tablet 1 mg PO DAILY #90 tab 05/09/19 03/20/20 Rx metformin 500 mg tablet 1,000 mg PO BID #360 tab 05/28/19 03/20/20 Rx blood sugar diagnostic #300 ea 07/23/19 03/20/20 Rx fluticasone 250 mcg-salmeterol 50 1 puffs INHALATION BID #180 ea 09/20/19 03/20/20 Rx mcg/dose blistr powdr for inhalation pantoprazole 20 mg tablet,delayed 20 mg PO DAILY #30 tab 10/30/19 03/20/20 Rx release levothyroxine 88 mcg tablet 88 mcg PO DAILY #90 tab 11/12/19 03/20/20 Rx rosuvastatin 10 mg tablet 10 mg PO HS #90 tab 11/12/19 03/20/20 Rx fluticasone propionate 2 spray INTRANASAL DAILY 03/20/20 03/20/20 History Past Med/Surg History Medical History (Updated 03/21/20 @ 02:49 by Kateryna Varghese DO) COPD (chronic obstructive pulmonary disease) Diabetes Hyperlipidemia Hypertension Hypothyroidism KEV (obstructive sleep apnea) Surgical History History of colonoscopy 2008, no more c-scopes due to abnormal GI anatomy-barium enemas History of surgical removal of lesion removal of lipoma of right flank area History of tubal ligation Hx of cholecystectomy Family History Mother Myocardial infarction Brother Myocardial infarction Father COPD (chronic obstructive pulmonary disease) Diabetes Denies family history of Ovarian cancer Prostate cancer Breast cancer Lung cancer Colorectal cancer Social History Smoking Status: Former smoker Age Started Using Tobacco: 14; Age Quit Using Tobacco: 56; packs per day: 1.5; Smoking End Date: 2006; Number of Years Since Quit: 13; Second Hand Exposure: Yes; Hx Alcohol Use: No Hx Substance Use: Yes (CBD Oil for back pain) Preferred Language: Moldovan Communication Ability: Effective Manager Garage Required: No Beliefs That Will Affect Care: None marital status: Current Living Situation: Spouse 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al status: retired 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: [employer], 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 How many Children do You have: 4 Feels Safe at Home: Yes Dental Care, Regularly: No Physical Activity Frequency: 1-2 Times per Week Seatbelt Use: always Sunscreen Use: No Assistive Devices: Oxygen - Continuous Review of Systems Review of Systems: All systems reviewed & are unremarkable except as noted in HPI & below Constitutional: no fever, no chills and no malaise Respiratory: + dyspnea; no cough Cardiovascular: no chest pain, no palpitations and no edema Gastrointestinal: no abdominal pain, no constipation and no diarrhea/loose stools Genitourinary: no dysuria and no hematuria Physical Exam Constitutional: WD/WN, vitals as above Eyes: PERRL, conjunctivae normal, anicteric sclerae ENMT: external ear and nose normal, oropharynx normal Neck: normal visual inspection Respiratory: normal respiratory effort, lungs clear to auscultation Cardiovascular: RRR, no murmur, no edema Gastrointestinal (Abdomen): normal bowel sounds, soft, nontender, no hepatosplenomegaly Musculoskeletal: no cyanosis or clubbing, extremities motor strength 5/5 Skin: no rashes, warm and dry Neurologic: AAOx3, normal speech. Bilateral UE, LE, and face without sensory or motor deficits. No tremor. Psychiatric: A+Ox3, euthymic affect Results & Data Results & Data ([facility]) Vital Signs (Past 12 Hours) Vital Signs Temp Pulse Pulse Resp BP Pulse Ox 03/20/20 23:47 87 L 03/20/20 22:49 96 H 20 96 03/20/20 22:30 97 H 19 129/60 97 03/20/20 22:08 96 H 15 143/63 H 96 03/20/20 20:39 96 03/20/20 20:30 106 H 20 151/96 H 93 03/20/20 20:05 37.3 C 105 H 26 H 151/96 H 92 Supervising Physician Co-Signing Physician Notes Attending addendum: I have physically seen this patient, have supervised the medical residents activities, and agree with the H&P unless as otherwise noted. Assessment and Plan: Acute respiratory failure with hypoxia/COPD exacerbation/obesity hypoventilation syndrome/obstructive sleep apnea- Pulse ox 86% on room air upon arrival. Pulmicort Respules 0.5 mg inhaled twice daily Duonebs every 4 hours while awake and every 2 hours when necessary. CPAP at at bedtime Azithromycin 500 mg IV daily Patient prefers no oral steroids due to concerns regarding weight gain Diabetes mellitus- Placed on basal bolus insulin while hospitalized. Check hemoglobin A1c Hypertension- Continue losartan with hold parameters Hyperlipidemia- Continue rosuvastatin Remaining orders and notations as noted Resident Activity Tracking Resident Involvement: Resident Care Provided Care Provided: Adult Hospital Medicine (1) Diabetes Diabetes mellitus complication status: without complication Diabetes mellitus adjunct faculty for medical terminology insulin use: without adjunct faculty for medical terminology use Diabetes mellitus type: type 2 Qu alified Code(s): E11.9 - Type 2 diabetes mellitus without complications (2) Hyperlipidemia Hyperlipidemia type: unspecified Qualified Code(s): E78.5 - Hyperlipidemia, unspecified (3) Hypothyroidism Hypothyroidism type: unspecified Qualified Code(s): E03.9 - Hypothyroidism, unspecified (4) Hypertension Hypertension type: essential hypertension Qualified Code(s): I10 - Essential (primary) hypertension
[2020-03-21] MEDS ORDERED: FEXOFENADINE HCL 180 MG TAB PO PRN (02:15)
[2020-03-21] MEDS ORDERED: ACETAMINOPHEN 325 MG TAB PO PRN (02:15)
[2020-03-21] MEDS ORDERED: POLYETHYLENE (MIRALAX) 17 GM PACK PO PRN (02:15)
[2020-03-21] MEDS ORDERED: ONDANSETRON INJ 2 MG/ML 2 ML VIAL IV PRN (02:15)
[2020-03-21] MEDS ORDERED: GLUCAGON FOR INJ 1 MG VIAL SQ PRN (02:39)
[2020-03-21] MEDS ORDERED: GLUCOSE 40% GEL 15 GM TUBE PO PRN (02:39)
[2020-03-21] MEDS ORDERED: CARBOHYDRATES FOR HYPOGLYCEMIA PO PRN (02:39)
[2020-03-21] MEDS ORDERED: GLUCOSE 10 TABS/TUBE PO PRN (02:39)
[2020-03-21] MEDS ORDERED: DEXTROSE 50% 50 ML SYRINGE IV PRN (02:39)
[2020-03-21] MEDS: HEPARIN SOD 5,000 UNIT/0.5 ML VIAL SQ SCH ×3 (05:59→21:02)
[2020-03-21] MEDS: LEVOTHYROXINE SODIUM 88 MCG TABLET PO SCH (06:00)
[2020-03-21] MEDS ORDERED: IPRATROPIUM BROMIDE HFA INHALER INH SCH (07:00)
[2020-03-21] MEDS ORDERED: ALBUTEROL HFA 8 GM INHALER INH SCH (07:00)
[2020-03-21] MEDS: ALBUT/IPRATROP 3MG/0.5MG NEB 3 ML VIAL NEB SCH ×4 (07:15→18:44)
[2020-03-21] MEDS: BUDESONIDE 0.5 MG/2 ML VIAL (PULMICORT) NEB SCH ×2 (07:15→18:44)
--- NOTE | 2020-03-21 08:13 | XRay Report ---
XR chest 1V portable HISTORY: Atypical Chest Pain COMPARISON: Chest 05/04/2011. FINDINGS: No pneumothorax. The cardiac silhouette is mildly enlarged. There is mild central pulmonary vascular congestion without overt edema. No new focal lung consolidations to suggest pneumonia. No p leural effusions. IMPRESSION: Cardiomegaly with mild congestive change. ACT 112: Negative or not required by law. Electronically signed by: Srini Garcia M.D. 03/21/2020 8:12 AM
[2020-03-21] MEDS: LOSARTAN POTASSIUM 50 MG TAB PO SCH (08:28)
[2020-03-21] MEDS: PANTOprazole 40 MG TAB PO SCH (08:28)
[2020-03-21] MEDS: MULTIVITAMIN TAB PO SCH (08:28)
[2020-03-21] MEDS: FLUTICASONE PROPIONATE NA SPR 16 GM BTL SCH (08:29)
[2020-03-21] MEDS: FLUTICASONE/VILANTEROL 200/25MCG 14 PUFFS/INHALER INH SCH (08:29)
[2020-03-21] MEDS: INSULIN GLARGINE SOLOSTAR 100 UNITS/ML 3 ML PEN SC SCH ×2 (08:31→21:01)
[2020-03-21] MEDS: INSULIN ASPART 100 UNITS/ML 3 ML PEN SC SCH ×4 (08:33→21:00)
[2020-03-21] MEDS: AZITHROMYCIN 500 MG in DEXTROSE 5% 250 ML IV SCH (08:41)
[2020-03-21] MEDS ORDERED: FUROSEMIDE 40 MG in SYRINGE 0 ML IV ONE (09:15)
[2020-03-21] MEDS ORDERED: FUROSEMIDE 20 MG in SYRINGE 0 ML IV ONE (09:15)
--- NOTE | 2020-03-21 12:35 | XCELERA ---
[id number]
--- NOTE | 2020-03-21 12:44 | Hospitalist Progress Note ---
Date of Service March 21, 2020 Assessment & Plan (1) Acute respiratory failure with hypoxia: Trisha Virk is a 69 yo morbidly obese female h/o T2DM, hypertension, hyperlipidemia, hypothyroidism, KEV on CPAP, and COPD (no O2 needs at home, no previous PFTs) admitted for acute hypoxic respiratory failure. Acute hypoxic respiratory failure - H/o orthopnea/LE edema as well as cough/SOB/increased sputum x1-2 weeks, SpO2 86% on RA in ED - suspect multifactorial due to OHS/KEV and COPD exacerbation - given Lasix 40mg IV x1 today given crackles on exam and pleural effusions on CXR, TTE showed EF 65-70% with normal LV size/function --> unlikely that CHF plays a significant role in current symptoms - Continue Azithromycin 500mg IV daily - Defer IV steroids as per patient's wishes - Pulmicort Respules, Duonebs scheduled - Continue home inhalers COPD - plan as above - consider outpatient PFTs to ascertain diagnosis KEV/OHS - Continue CPAP qHS and while asleep - outpatient PFTs as above T2DM - SSI and basal insulin while hospitalized HTN - Continue home losartan HLD - Continue home rosuvastatin Hypothyroidism - Continue home levothyroxine GERD - Continue home pantoprazole Code Status: Conditional Code. Patient does not want defibrillation or chest compressions if her heart stops. She only desires intubation in the event of a primary lung problem without heart involvement such as respiratory failure due to lung infection. FEN/GI: Heart Healthy/DM2 DVT ppx: Heparin 5000u q8h Dispo: Med/Surg for azithromycin, neb treatments (2) COPD exacerbation: (3) KEV (obstructive sleep apnea): (4) Diabetes: (5) Hypothyroidism: (6) Hypertension: (7) Hyperlipidemia: Admission and Anticipated Discharge Date Admission Date: March 21, 2020 Supervising Physician Co-Signing Physician Notes I personally examined the patient and verified all chadwick points of history and exam, discussed case, and agree with decision making with Dr Moctezuma. Feeling a bit better since Lasix. Still short of breath. But better than before. Did void a lot with the Lasix. Vitals noted. In general she is awake and alert pleasant no distress. HEENT normocephalic atraumatic mucous membranes moist. 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 No accessory muscle use good effort. Dyspneahypoxiapresent on admission Appears to be both combination of lung disease and acute CHF. CHF is yet to be definedecho pending, suspect diastolic. We will have to delve into lifestyle/sodium measures once is more clear. Continue to diurese and follow. In regards to her lungs, she definitely warrants PFTs if they have not been doneI cannot find evidence of this as an outpatient, she seems more consistent with CHF, KEV, and may be an acute infectious bronchitisbut she is labeled as COPD at baseline. I wonder how much of this might be OHS instead. At this point continue current care and supportive care, but PFTs as an outpatient when she is at baseline. Otherwise as above. Subjective See H&P for HPI Review of Systems Review of Systems: See H&P for ROS Physical Exam Physical Exam: See H&P for PE Results & Data Results & Data ([facility]) Vital Signs (Past 12 Hours) Vital Signs Temp Pulse Pulse Resp BP BP BP 03/21/20 11:57 36.3 C L 93 H 20 145/71 H 03/21/20 07:47 86 03/21/20 07:15 85 18 03/21/20 07:13 36.5 C 87 18 150/74 H 03/21/20 04:00 36.5 C 95 H 16 144/73 H 03/21/20 03:30 81 17 136/77 03/21/20 02:28 36.7 C 99 H 28 H 173/87 H 03/21/20 02:15 101 H 03/21/20 01:00 150/58 H Pulse Ox 03/21/20 11:57 95 03/21/20 07:47 03/21/20 07:15 97 03/21/20 07:13 95 03/21/20 04:00 97 03/21/20 03:30 97 03/21/20 02:28 96 03/21/20 02:15 03/21/20 01:00 95 Resident Activity Tracking Resident Involvement: Resident Care Provided Care Provided: Adult Hospital Medicine (1) Diabetes Diabetes mellitus complication status: without complication Diabetes mellitus intermediate project manager insulin use: without intermediate project manager use Diabetes mellitus type: type 2 Qualified Code(s): E11.9 - Type 2 diabetes mellitus without complications (2) Hyperlipidemia Hyperlipidemia type: unspecified Qualified Code(s): E78.5 - Hyperlipidemia, unspecified (3) Hypothyroidism Hypothyroidism type: unspecified Qualified Code(s): E03.9 - Hypothyroidism, unspecified (4) Hypertension Hypertension type: essential hypertension Qualified Code(s): I10 - Essential (primary) hypertension
--- NOTE | 2020-03-21 13:23 | Electrocardiogram Report ---
Test Reason : Blood Pressure : / mmHG Vent. Rate : 106 BPM Atrial Rate : 106 BPM P-R Int : 144 ms QRS Dur : 080 ms QT Int : 330 ms P-R-T Axes : 032 058 056 degrees QTc Int : 438 ms Poor data quality, interpretation may be adversely affected Sinus tachycardia Otherwise normal ECG When compared with ECG of 28-DEC-2014 21:48, No significant change was found Confirmed by Arcenio Zuniga ([id number]) on 03/21/2020 1:22:46 PM Referred By: REFERRED SELF Confirmed By:Arcenio Zuniga
--- NOTE | 2020-03-21 13:45 | Electrocardiogram Report ---
Test Reason : Blood Pressure : / mmHG Vent. Rate : 100 BPM Atrial Rate : 100 BPM P-R Int : 150 ms QRS Dur : 090 ms QT Int : 360 ms P-R-T Axes : 060 055 069 degrees QTc Int : 464 ms Normal sinus rhythm Normal ECG When compared with ECG of 20-MAR-2020 20:32, (unconfirmed) No significant change was found Confirmed by Arcenio Zuniga ([id number]) on 03/21/2020 1:44:52 PM Referred By: REFERRED SELF Confirmed By:Arcenio Zuniga
--- NOTE | 2020-03-21 15:26 | Billing Data ---
Date of Service March 21, 2020 Coding Level of Care Code 05199 Subseq Hosp Care Lvl 3
--- NOTE | 2020-03-21 19:34 | Billing Data ---
Date of Service March 21, 2020 Coding Level of Care Code 32029 Initial Inpt Care Lvl 3
[2020-03-21] MEDS ORDERED: ROSUVASTATIN CALCIUM 10 MG TAB PO SCH (21:00)
[2020-03-22] MEDS: LEVOTHYROXINE SODIUM 88 MCG TABLET PO SCH (05:35)
[2020-03-22] MEDS: HEPARIN SOD 5,000 UNIT/0.5 ML VIAL SQ SCH ×2 (05:37→14:05)
[2020-03-22 06:44] LABS: Basophils # (auto) 0.03 K/uL (0-0.2); Basophils % (auto) 0.3 %; Eosinophils # (auto) 0.09 K/uL (0-0.5); Eosinophils % (auto) 0.9 %; Hematocrit (blood only) 37.9 % (37-47); Hemoglobin 12.5 g/dL (12.0-16.0); Immature Granulocytes # (auto) 0.03 K/uL (0.00-0.02); Immature Granulocytes % (auto) 0.3 %; Lymphocytes # (auto) 3.93 K/uL (1.2-3.4); Lymphocytes % (auto) 38.2 %; Mean Corpuscular Hemoglobin 28.6 pg (25-34); Mean Corpuscular Volume 86.7 fL (80-100); Mean Platelet Volume 9.4 fL (7.4-10.4); Monocytes # (auto) 0.69 K/uL (0.11-0.59); Monocytes % (auto) 6.7 %; Neutrophils # (auto) 5.52 K/uL (1.4-6.5); Neutrophils % (auto) 53.6 %; Platelet Count 321 K/uL (130-400); RDW Coefficient of Variation 14.8 % (11.5-14.5); Red Blood Count 4.37 M/uL (4.2-5.4); White Blood Count 10.29 K/uL (4.8-10.8)
--- NOTE | 2020-03-22 06:59 | Hospitalist Progress Note ---
Date of Service March 22, 2020 Assessment & Plan (1) Acute respiratory failure with hypoxia: Trisha Virk is a 69 yo morbidly obese female h/o T2DM, hypertension, hyperlipidemia, hypothyroidism, KEV on CPAP, and COPD (no O2 needs at home, no previous PFTs) admitted for acute hypoxic respiratory failure. Acute hypoxic respiratory failure - H/o orthopnea/LE edema as well as cough/SOB/increased sputum x1-2 weeks, SpO2 86% on RA in ED - suspect multifactorial due to OHS/KEV and COPD exacerbation - given Lasix 40mg IV x1 today given crackles on exam and pleural effusions on CXR, TTE showed EF 65-70% with normal LV size/function --> unlikely that CHF plays a significant role in current symptoms - Continue Azithromycin 500mg IV daily - Defer IV steroids as per patient's wishes - Pulmicort Respules, Duonebs scheduled - Continue home inhalers - 03/22/20 lasix 40mg IV x1 COPD - plan as above - consider outpatient PFTs to ascertain diagnosis KEV/OHS - Continue CPAP qHS and while asleep - outpatient PFTs as above T2DM - SSI and basal insulin while hospitalized HTN - Continue home losartan HLD - Continue home rosuvastatin Hypothyroidism - Continue home levothyroxine GERD - Continue home pantoprazole Code Status: Conditional Code. Patient does not want defibrillation or chest compressions if her heart stops. She only desires intubation in the event of a primary lung problem without heart involvement such as respiratory failure due to lung infection. FEN/GI: Heart Healthy/DM2 DVT ppx: Heparin 5000u q8h Dispo: Med/Surg for azithromycin, neb treatments (2) COPD exacerbation: (3) KEV (obstructive sleep apnea): (4) Diabetes: (5) Hypothyroidism: (6) Hypertension: (7) Hyperlipidemia: Admission and Anticipated Discharge Date Admission Date: March 21, 2020 Subjective Feeling pretty good, including breathing (better than yesterday, but still has feels crackles/wheezing sensation at upper chest/lower neck). Still not at baseline, but getting there. 1 wk of yellow sputum, feels it is improving. had sinus symptoms and associated EGAN earlier in the week, resolved. 2L home O2 at nighttime only. x3 years. former smoker x 42 years. 1.5ppd KEV on cpap Review of Systems Review of Systems: Constitutional: Denies fever, chills, Eyes: Denies blurry vision, vision changes ENT: Denies sore throat Cardiovascular: Denies chest pain, palpitations Respiratory: SOB only w/ movement/exertion Gastrointestinal: Denies abdominal pain, nausea, vomiting, constipation, diarrhea Genitourinary: Denies urinary symptoms including dysuria Musculoskeletal: Denies weakness, muscle aches/pain, joint aches/pain Neurological: Denies headache, numbness, tingling, focal weakness Physical Exam Physical Exam: General: Grossly A&O. NAD. Cooperative. HEENT: Atraumatic, normocephalic. No JVD (~3cm) on R. could not see on L. Pulm: Diffuse exp rhonchi. No respiratory distress or accessory muscle use. neck ausculatation expiratory crackling noise. Cardiac: RRR, -mrg. dp pulses 2+. trace BLE. Abdominal: Nontender, nondistended, soft. no dullness to percussion. Results & Data Results & Data ([facility]) Vital Signs (Past 12 Hours) Vital Signs Temp Pulse Resp BP BP Pulse Ox 03/22/20 03:37 36.7 C 88 18 145/68 H 97 03/21/20 22:00 36.8 C 96 H 20 161/89 H 98 03/21/20 19:00 36.6 C 93 H 20 164/81 H 98 Resident Activity Tracking Resident Involvement: Resident Care Provided Care Provided: Adult Hospital Medicine (1) Diabetes Diabetes mellitus complication status: without complication Diabetes mellitus detention insulin use: without detention use Diabetes mellitus type: type 2 Qualified Code(s): E11.9 - Type 2 diabetes mellitus without complications (2) Hyperlipidemia Hyperlipidemia type: unspecified Qualified Code(s): E78.5 - Hyperlipidemia, unspecified (3) Hypothyroidism Hypothyroidism type: unspecified Qualified Code(s): E03.9 - Hypothyroidism, unspecified (4) Hypertension Hypertension type: essential hypertension Qualified Code(s): I10 - Essential (primary) hypertension
[2020-03-22 07:34] LABS: BUN Creatinine Ratio 25.5 (10-20); Calcium 9.8 mg/dl (8.5-10.1); Est GFR (African American) 75.1; Est GFR (Non-African American) 64.8; Magnesium 2.2 mg/dl (1.8-2.4); Potassium 3.8 mmol/L (3.5-5.1)
[2020-03-22 07:35] LABS: Phosphorus 4.4 mg/dl (2.5-4.9)
[2020-03-22] MEDS: BUDESONIDE 0.5 MG/2 ML VIAL (PULMICORT) NEB SCH (07:36)
[2020-03-22] MEDS: ALBUT/IPRATROP 3MG/0.5MG NEB 3 ML VIAL NEB SCH ×3 (07:37→15:24)
[2020-03-22] MEDS: MULTIVITAMIN TAB PO SCH (08:05)
[2020-03-22] MEDS: PANTOprazole 40 MG TAB PO SCH (08:05)
[2020-03-22] MEDS: FLUTICASONE/VILANTEROL 200/25MCG 14 PUFFS/INHALER INH SCH (08:05)
[2020-03-22] MEDS: LOSARTAN POTASSIUM 50 MG TAB PO SCH (08:05)
[2020-03-22] MEDS: FLUTICASONE PROPIONATE NA SPR 16 GM BTL SCH (08:06)
[2020-03-22] MEDS: INSULIN GLARGINE SOLOSTAR 100 UNITS/ML 3 ML PEN SC SCH (08:09)
[2020-03-22] MEDS: INSULIN ASPART 100 UNITS/ML 3 ML PEN SC SCH ×3 (08:09→16:54)
[2020-03-22] MEDS: AZITHROMYCIN 500 MG in DEXTROSE 5% 250 ML IV SCH (08:11)
[2020-03-22] MEDS ORDERED: POTASSIUM CHLORIDE PWD 20 MEQ PACK PO ONE (08:16)
[2020-03-22] MEDS ORDERED: FUROSEMIDE 40 MG in SYRINGE 0 ML IV ONE (08:30)
--- NOTE | 2020-03-22 18:23 | Discharge Summary ---
Date of Service March 22, 2020 Admission HPI Per Admitting Provider 69-year-old female past medical history significant for DM 2, hypertension, hyperlipidemia, hypothyroidism, KEV on CPAP, COPD presented to ED for shortness of breath and increased dyspnea on exertion. Reports that this morning when she went with her to go grocery shopping she had some shortness of breath with walking, would improve with rest. On arrival home due to sleeping poorly the night before she took a nap, and when she woke up she felt short of breath still, which got worse with any movement including trying to get out of bed. She did not have any associated chest pain, dizziness, headache, abdominal pain, fevers or chills. She tried one of her home nebulizers without any improvement, which prompted her visit to the ER. Did have a sinus infection 1 week ago, did not take any antibiotics for this. Of note, patient did not wear her CPAP during her nap. Does not wear supplemental oxygen at baseline. In the ER patient was noted to be hypoxic to 87% on room air, with improvement to normal levels on 3L supplemental O2. Mild leukocytosis to 11. COVID 19 testing negative. On my interview patient denies active SOB. Refuses further IV steroids because they "make her gain weight". Admission Exam Per Admitting Provider Constitutional: WD/WN, vitals as above Eyes: PERRL, conjunctivae normal, anicteric sclerae ENMT: external ear and nose normal, oropharynx normal Neck: normal visual inspection Respiratory: normal respiratory effort, lungs clear to auscultation Cardiovascular: RRR, no murmur, no edema Gastrointestinal (Abdomen): normal bowel sounds, soft, nontender, no hepatosplenomegaly Musculoskeletal: no cyanosis or clubbing, extremities motor strength 5/5 Skin: no rashes, warm and dry Neurologic: AAOx3, normal speech. Bilateral UE, LE, and face without sensory or motor deficits. No tremor. Psychiatric: A+Ox3, euthymic affect Principal Diagnosis hypoxia - COPD exac and acute diastolic chf Discharge Exam General: Grossly A&O. NAD. Cooperative. HEENT: Atraumatic, normocephalic. No JVD (<3cm from sternal angle) Pulm: Diffuse exp rhonchi. No respiratory distress or accessory muscle use. Cardiac: RRR, -mrg. dp pulses 2+. trace BLE. Abdominal: Nontender, nondistended, soft. no dullness to percussion. Discharge Data Allergies Allergy/AdvReac Type Severity Reaction Status Date / Time Penicillins Allergy Severe HIVES Verified 03/20/20 22:46 tomato Allergy Intermediate Rash Verified 03/21/20 08:52 Consultations 03/20/20 23:45 ED Decision to Admit Stat Hospital Course (1) Acute respiratory failure with hypoxia: Trisha Virk is a 69 yo morbidly obese female h/o T2DM, hypertension, hyperlipidemia, hypothyroidism, KEV (CPAP w/ 2L O2 at night), and COPD admitted 03/21/20-03/22/20 for acute hypoxic respiratory failure 2/2 COPD exacerbation. Acute hypoxic respiratory failure - H/o orthopnea/LE edema as well as cough/SOB/increased sputum x1-2 weeks, SpO2 86% on RA in ED - suspect multifactorial due to OHS/KEV and COPD exacerbation and smaller contribution from diastolic CHF - Lasix 40mg IV x 2 days given orthopnea, LE edema, and mild congestion on CXR, TTE showed EF 65-70% with normal LV size/function - covid, influenza, and RSV negative 03/20/20 - Deferred IV steroids as per patient's wishes - cumulative Is/Os: net negative 1.5L - weights per records: 12/20/19 (114.8 kg). 03/20/19 (116.5 kg). 03/22/19 (114.5 kg) - Continue home inhalers - received 2 days of IV azithro 500 mg. To complete 3 days of PO azithro 250 mg. - continue inhaled corticosteroid, already has fluticasone-salmeterol on prior home med's list - No ongoing outpatient diuresis indicated at this time COPD - consider outpatient PFTs, no prior PFTs per records KEV/OHS - Continue CPAP qHS and while asleep T2DM - received SSI and basal insulin while hospitalized HTN - Continue home losartan HLD - Continue home rosuvastatin Hypothyroidism - Continue home levothyroxine GERD - Continue home pantoprazole Code Status during this admission: Conditional Code. No CPR or defibrillation. She only desires intubation in the event of a primary lung problem without heart involvement such as respiratory failure due to lung infection. (2) COPD exacerbation: (3) KEV (obstructive sleep apnea): (4) Diabetes: (5) Hypothyroidism: (6) Hypertension: (7) Hyperlipidemia: Total Time Total Time Spent Total Time Spent (In Minutes): <30 Discharge Plan Discharge Items Patient Disposition: Home - Self-Care Reason For Visit: COPD EXACERBATION Discharge Diagnosis: COPD exacerbation Activity: Per Instructions section Non-emergency contact: Primary Care Provider Call non-emergency contact if: you have any medication questions and you have a fever Follow-up/Referrals: Ulisses Devi MD [Primary Care Provider] - (hosp follow up in 1 wk) Diet: Regular Addtl Attending Provider Instructions: You were admitted to [facility] on 03/21/20 for shortness of breath. The workup here suggests that you had a COPD exacerbation. Your chest xray showed some mild congestion, but did not suggest infection. You were given 2 doses of IV lasix. However, you will not be sent home on a water pill because your heart ultrasound function was normal and your breathing symptoms seemed to related to your COPD. You were given 2 days of IV az ithromycin and will have to take 3 more days of oral azithromycin (250 mg tab) at home starting on 03/23/20. Please continue your home inhalers, especially the one that contains "fluticasone" because that one is an inhaled steroid that will help with your symptoms. Please follow up with Dr. Devi, your primary care provider, in 1-2 weeks for hospital followup. If you do not receive a call from the office, give them a call. If you develop any new or worsening symptoms including fever, chills, sweats, chest pain, chest pressure, difficulty breathing, uncontrolled nausea/vomiting, rash, wheezing, passing out or nearly passing out, bleeding, black/bloody bowel movements, or other new or concerning symptoms please call your primary care physician, or call 911 for re-evaluation in the emergency department if you are very concerned. Pending Studies at Discharge: No Stand-Alone Forms: My [facility]AT [place], Smoking Cessation Medications and DC Order Prescriptions: New azithromycin 250 mg tablet 250 mg PO DAILY 3 Days Qty: 3 RF: 0 Continued cholecalciferol (vitamin D3) 2,000 unit capsule 4,000 units PO HS RF: 0 losartan 100 mg tablet 100 mg PO DAILY Qty: 90 RF: 3 Combivent Respimat 20-100 mcg/actuation mist 1 puffs INH QID Qty: 4 RF: 5 glimepiride 1 mg tablet 1 mg PO DAILY Qty: 90 RF: 3 metformin 500 mg tablet 1,000 mg PO BID Qty: 360 RF: 3 (DME) blood sugar diagnostic Strip See Rx Instructions .ROUTE .MEDSUPPLY Qty: 300 RF: 3 fluticasone propion-salmeterol 250-50 mcg/dose blister with device 1 puffs inhalation BID Qty: 180 RF: 3 levothyroxine 88 mcg tablet 88 mcg PO DAILY Qty: 90 RF: 1 rosuvastatin 10 mg tablet 10 mg PO HS Qty: 90 RF: 1 multivitamin [Daily Multi-Vitamin] tablet 1 tab PO DAILY RF: 0 magnesium oxide 250 mg magnesium tablet 250 mg PO QPM RF: 0 fexofenadine [Gwendolyn Allergy] 180 mg tablet 180 mg PO DAILY PRN (Reason: allergies) RF: 0 pantoprazole 20 mg tablet,delayed release (DR/EC) 20 mg PO DAILY Qty: 30 RF: 5 fluticasone propionate 50 mcg/actuation spray,suspension 2 spray intranasal DAILY RF: 0 Discharge Orders: Discharge Order (Routine); Ordered 03/22/20 Ordered By: Nirmal Cordova Admission Data Admit Date/Time: 03/21/20 00:40 Attending Provider: Karl Scott Admit Provider: Kateryna Varghese Primary Care Provider: Ulisses Devi Other Providers: Carlos Wesley Lawrence Other Interventions: Discharge Summary Assessment (RN) Last Done: 03/22/20 18:08 Supervising Physician Co-Signing Physician Notes I personally examined the patient and verified all chadwick points of history and exam, discussed case, and agree with decision making with Dr Cordova. breathing feeling better. did well on 2 step and does not need O2 Vitals noted. In general she is awake and alert pleasant no distress. HEENT normocephalic atraumatic mucous membranes moist. lungs overall clear now - maybe very faint bibasilar rales no rhonchi no wheeze. No accessory muscle use good effort. Dyspneahypoxiapresent on admission Appears to be both combination of lung disease and acute CHF. CHF acute diastolic. improved quickly - no clear need for ongoing diuresis as outpt. In regards to her lungs, she definitely warrants PFTs if they have not been doneI cannot find evidence of this as an outpatient, she seems more consistent with CHF, KEV, and may be an acute infectious bronchitisbut she is labeled as COPD at baseline. I wonder how much of this might be OHS instead. stable for discharge, close outpt f/u, finish course of zithromax. PFTs in near future Otherwise as above. Resident Activity Tracking Resident Involvement: Resident Care Provided Care Provided: Adult Hospital Medicine
--- NOTE | 2020-03-22 19:33 | Billing Data ---
Date of Service March 22, 2020 Coding Level of Care Code D/C Day Management <30 mins
== END 2020-03-22 18:34 | disposition home or self-care (01) ==
LOC: ED 20:16 → SUATTDRO 03-21 00:40 → INTOOBSV 03-21 00:40 → 2N 03-21 00:40